=== PATIENT | male | born 1965 | race Caucasian/White ===

== ENCOUNTER → 2018-07-28 07:11 | Outpatient (CLI) | payer BC, SELFPAY ==
[2018-06-03 15:11] VITALS: BMI 25.5
[2018-07-28 08:07] LABS: Anion Gap 8 (5-15); BUN 24 mg/dL (7-18); BUN/Creat Ratio 23.3 RATIO (10-20); Calcium,Total 8.8 mg/dL (8.5-10.1); Chloride 110 mmol/L (98-107); Cholesterol 205 mg/dL (200); Creatinine, Serum 1.03 mg/dL (0.70-1.30); EST Glomerular Filtration Rate 80 mL/min (>60); Est Glom Filt Rate - Afr Amer 97 mL/min (>60); Glucose 94 mg/dL (74-106); High Density Lipoprotein 41 mg/dL; Potassium 4.3 mmol/L (3.5-5.1); Sodium Level 144 mmol/L (136-145); Triglycerides 171 mg/dL; Very Low Density Lipoprotein 34 mg/dL (5-40)
== END ==
PROVIDERS: Family Provider Family Medicine; PCP Family Medicine; Referring Provider Family Medicine; Visit Provider Family Medicine
DX: I10 Essential (primary) hypertension (principal)
CPT/HCPCS: 36415; 80048; 80061

== ENCOUNTER → 2019-06-04 16:10 | Outpatient (CLI) | payer BC, SELFPAY ==
[2019-06-04 16:08] VITALS: BMI 25.5
[2019-06-04 17:17] LABS: Absolute Lymphocyte Count 2.22 X10^3/uL (0.83-4.51); Absolute Neutrophil Count 2.8 X10^3/uL (2.0-7.7); Basophil# 0.04 X10^3/uL; Basophil% 0.7 % (0-1); Eosinophil# 0.13 X10^3/uL; Eosinophils% 2.3 % (0-5); Hematocrit 46.6 % (40-54); Hemoglobin 15.5 g/dL (13.0-16.5); Lymphocyte # 2.22 X10^3/ul (4.0); Lymphocyte % 39.2 % (19-41); Mean Corp Hgb Conc 33.3 g/dL (32-36); Mean Corpuscular Volume 90.1 fL (80-94); Mean Platelet Vol. 9.9 fl (6.2-12.0); Monocyte% 8.8 % (0-10); NRBC Flagged by Analyzer 0 % (0-5); Neutrophil # 2.77 X10^3/uL (2.7-7.7); Neutrophil % 48.8 % (47-70); Platelet Count 225 K/mm3 (150-450); RBC Distribution Width CV 11.9 % (11.6-14.6); RBC Distribution Width SD 39.6 fl (35.1-43.9); Red Blood Count 5.17 M/mm3 (4.6-6.2); White Blood Count 5.7 K/mm3 (4.4-11.0)
[2019-06-04 17:52] LABS: AST(SGOT) 16 U/L (15-37); Alanine Aminotransfer ALT/SGPT 27 U/L (16-61); Albumin, Serum 4.1 g/dL (3.2-5.0); Alkaline Phosphatase 84 U/L (45-117); Anion Gap 11 (5-15); BUN 20 mg/dL (7-18); BUN/Creat Ratio 19.8 RATIO (10-20); Bilirubin, Direct 0.14 mg/dL (0.00-0.30); Calcium,Total 8.8 mg/dL (8.5-10.1); Chloride 104 mmol/L (98-107); Cholesterol 220 mg/dL (200); Creatinine, Serum 1.01 mg/dL (0.70-1.30); EST Glomerular Filtration Rate 81 mL/min (>60); Est Glom Filt Rate - Afr Amer 98 mL/min (>60); Globulin 3.6 g/dL (2.2-4.2); Glucose 83 mg/dL (74-106); High Density Lipoprotein 45 mg/dL; Protein, Total 7.7 g/dL (6.4-8.2); Sodium Level 142 mmol/L (136-145); Thyroid Stim Hormone (TSH) 1.18 uIU/mL (0.358-3.74); Triglycerides 188 mg/dL; Very Low Density Lipoprotein 38 mg/dL (5-40)
== END ==
PROVIDERS: Family Provider Family Medicine; PCP Family Medicine; Referring Provider Internal Medicine Cardiovascular Disease; Visit Provider Internal Medicine Cardiovascular Disease
DX: I10 Essential (primary) hypertension (principal)
CPT/HCPCS: 36415; 80048; 80061; 80076; 84443; 85025

== ENCOUNTER → 2020-05-20 07:13 | Outpatient (CLI) | payer BC, SELFPAY ==
[2019-06-04 16:08] VITALS: BMI 25.5
[2020-05-20 07:59] LABS: Anion Gap 5 (5-15); BUN 22 mg/dL (7-18); BUN/Creat Ratio 20.6 RATIO (10-20); Calcium,Total 9.3 mg/dL (8.5-10.1); Chloride 106 mmol/L (98-107); Cholesterol 215 mg/dL (200); Creatinine, Serum 1.07 mg/dL (0.70-1.30); EST Glomerular Filtration Rate 76 mL/min (>60); Est Glom Filt Rate - Afr Amer 92 mL/min (>60); Glucose 98 mg/dL (74-106); High Density Lipoprotein 49 mg/dL; PSA,Total - Annual Screen 0.78 ng/mL (0.00-4.00); Potassium 4.3 mmol/L (3.5-5.1); Sodium Level 140 mmol/L (136-145); Triglycerides 143 mg/dL; Very Low Density Lipoprotein 29 mg/dL (5-40)
== END ==
PROVIDERS: PCP Family Medicine; Referring Provider Family Medicine; Visit Provider Family Medicine
DX: I10 Essential (primary) hypertension (principal); N40.0 Benign prostatic hyperplasia without lower urinary tract symptoms
CPT/HCPCS: 36415; 80048; 80061; 84153; G0103

== ENCOUNTER → 2022-06-19 | Outpatient (CLI) | payer OTHER, SELFPAY ==
[2022-06-19 17:26] LABS: Absolute Lymphocyte Count 2.33 X10^3/uL (0.83-4.51); Absolute Neutrophil Count 2.8 X10^3/uL (2.0-7.7); Basophil# 0.05 X10^3/uL; Basophil% 0.9 % (0-1); Eosinophil# 0.07 X10^3/uL; Eosinophils% 1.2 % (0-5); Hematocrit 45.8 % (40-54); Hemoglobin 16.1 g/dL (13.0-16.5); Lymphocyte # 2.33 X10^3/ul (0.83-4.51); Lymphocyte % 40.7 % (19-41); Mean Corp Hgb Conc 35.2 g/dL (32-36); Mean Corpuscular Volume 88.2 fL (80-94); Mean Platelet Vol. 9.5 fl (6.2-12.0); Monocyte# 0.51 X10^3/uL; Monocyte% 8.9 % (0-10); NRBC Flagged by Analyzer 0 % (0-5); Neutrophil # 2.76 X10^3/uL (2.7-7.7); Neutrophil % 48.1 % (47-70); Platelet Count 223 K/mm3 (150-450); RBC Distribution Width CV 12.1 % (11.6-14.6); RBC Distribution Width SD 39.4 fl (35.1-43.9); Red Blood Count 5.19 M/mm3 (4.6-6.2); White Blood Count 5.7 K/mm3 (4.4-11.0)
[2022-06-19 18:20] LABS: AST(SGOT) 14 U/L (15-37); Alanine Aminotransfer ALT/SGPT 25 U/L (16-61); Albumin, Serum 4.2 g/dL (3.2-5.0); Alkaline Phosphatase 70 U/L (45-117); Anion Gap 7 (5-15); BUN 18 mg/dL (7-18); BUN/Creat Ratio 19.2 RATIO (10-20); Calcium,Total 8.8 mg/dL (8.5-10.1); Chloride 104 mmol/L (98-107); Cholesterol 238 mg/dL (200); Creatinine, Serum 0.94 mg/dL (0.70-1.30); EST Glomerular Filtration Rate 88 mL/min (>60); Est Glom Filt Rate - Afr Amer 106 mL/min (>60); Globulin 3.3 g/dL (2.2-4.2); Glucose 96 mg/dL (74-106); High Density Lipoprotein 54 mg/dL; Magnesium 2.4 mg/dL (1.6-2.6); Potassium 3.8 mmol/L (3.5-5.1); Protein, Total 7.5 g/dL (6.4-8.2); Sodium Level 139 mmol/L (136-145); Thyroid Stim Hormone (TSH) 1.21 uIU/mL (0.358-3.74); Triglycerides 110 mg/dL; Very Low Density Lipoprotein 22 mg/dL (5-40)
== END | disposition home or self-care (01) ==
LOC: LAB 16:49
PROVIDERS: PCP Family Medicine; Visit Provider Internal Medicine Cardiovascular Disease
DX: I10 Essential (primary) hypertension (principal); I47.1 Supraventricular tachycardia; Z12.5 Encounter for screening for malignant neoplasm of prostate
CPT/HCPCS: 36415; 80048; 80061; 80076; 83735; 84153; 84443; 85025; G0103

== ENCOUNTER → 2022-07-18 | Outpatient (CLI) | payer SELFPAY ==
--- NOTE | 2022-07-18 14:53 | ECHOD_ITS ---
Reason For Study: ARRYTHMNIA Procedure This was a 2D Doppler, Color Flow transthoracic echocardiogram. Exam performed in department. Left Ventricle Normal LV size. Left ventricular systolic function is normal. The estimated ejection fraction is 60 %. Stage 1 diastolic dysfunction. No regional wall motion abnormalities noted. Right Ventricle Normal RV size. Normal systolic function. Atria Normal left atrium. Normal right atrium. Mitral Valve Normal mitral valve. Mild (1+) eccentric mitral valve insufficiency. Tricuspid Valve Normal tricuspid valve. Aortic Valve Normal aortic valve. Trisinus/trileaflet aortic valve. Pulmonic Valve Normal pulmonic valve. Great Vessels Normal aortic root. The pulmonary artery is normal size. Normal inferior vena cava. Pericardium/Pleural No pericardial effusion. MMode/2D Measurements & Calculations RVDd: 3.5 cm Ao root diam: 3.1 cm LAV(MOD-sp2): 18.9 ml RA A4 area: 18.4 cm2 Time Measurements MV dec time: 0.21 sec Doppler Measurements & Calculations MV E max jordan: 90.8 cm/sec Lat Peak E' Jordan: 13.0 cm/sec Med Peak E' Jordan: 7.6 cm/sec MV A max jordan: 98.0 cm/sec E/E' lat: 7.0 E/E' med: 11.9 MV E/A: 0.93 MV V2 max: 105.3 cm/sec MV dec slope: 456.4 cm/sec2 Ao V2 max: 156.5 cm/sec MV max P.4 mmHg Ao max P.8 mmHg MV V2 mean: 57.2 cm/sec Ao V2 mean: 103.8 cm/sec MV mean P.5 mmHg Ao mean P.0 mmHg MV V2 VTI: 41.6 cm Ao V2 VTI: 34.0 cm AV (velocity ratio): 0.75 LV V1 max: 118.2 cm/sec PA V2 max: 96.1 cm/sec LV V1 max P.6 mmHg PA V2 mean: 66.9 cm/sec LV V1 mean P.0 mmHg LV V1 mean: 81.6 cm/sec LV V1 VTI: 25.3 cm ECHO/Echo Complete Interpretation Summary Normal LV size. Left ventricular systolic function is normal. The estimated ejection fraction is 60 %. Stage 1 diastolic dysfunction. Mild (1+) eccentric mitral valve insufficiency. Structurally normal valves. Ordering Physician: Coy Lima Referring Physician: Coy Lima Performed By: Cheli Garcia RCS
== END | disposition home or self-care (01) ==
PROVIDERS: PCP Family Medicine; Referring Provider Internal Medicine Cardiovascular Disease; Visit Provider Internal Medicine Cardiovascular Disease
DX: I47.1 Supraventricular tachycardia (principal); I10 Essential (primary) hypertension
CPT/HCPCS: 93306

== ENCOUNTER 2023-06-19 15:13 | Emergency (ER) | payer OTHER, SELFPAY ==
[2023-06-19 15:13] VITALS: BP 148/80; PULSE 69; RESP 15; O2SAT 97
[2023-06-19 15:15] VITALS: BP 145/100; PULSE 73; RESP 14; TEMP 36.3; O2SAT 100; BMI 27.2
--- NOTE | 2023-06-19 15:35 | EDS_ITS ---
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 He states he felt as if he was drunk. He also complained of both arms not feeling right when he was dizzy . He denied headache. He denied double vision, blurred vision or loss of vision. He denies ringing in his ears or decreased hearing. He denies trouble with speech or swallowing. He presently has no complaint of paresthesia, anesthesia or motor weakness. He denies cardiac or respiratory symptoms. Only GI symptom is nausea. There is no recent or remote history of head trauma. Prior similar symptoms: No Recent Illness/Hospitalization: No PFSH PFSH Medical History AVNRT (AV amaury re-entry tachycardia) Essential (primary) hypertension Home Medications losartan 25 mg tablet 25 mg PO QDAY #90 tabs 11/30/22 [Rx Last Taken Unknown] Allergy/AdvReac Type Severity Reaction Status Date / Time lisinopril AdvReac Severe Cough Verified 06/19/23 15:16 Family History Father CAD (coronary artery disease) Hypertension Cancer Mother CAD (coronary artery disease) Hypertension Surgical History History of cardiac radiofrequency ablation (08/23/15) History of left heart catheterization (08/07/13) Social History (Updated 06/19/23 @ 15:[address] Ricky Neumann MD) household members: spouse Smoking Status: Never smoker alcohol intake: former ROS ROS ED Constitutional Constitutional ED: Denies chills, fever(s) or subjective Eyes Eyes: Denies blurry vision, change in vision or diplopia ENT ENT ED: Denies ear pain, rhinorrhea or sore throat Cardiovascular Cardiovascular: Denies chest pain or palpitations Respiratory/Chest Respiratory/Chest: Denies cough, dyspnea or dyspnea on exertion Gastrointestinal Gastrointestinal: Reports nausea; Denies diarrhea, melena or vomiting Musculoskeletal Musculoskeletal: Denies arthralgias, back pain, myalgias or neck pain Neurologic Neurologic: Reports other Details: Balance is off ; Denies headache(s), paresthesias or weakness Endocrine Endocrinology: Denies cold intolerance or heat intolerance Hematologic/Lymphatic Hematologic/Lymphatic: Reports systems reviewed and no addt'l complaints, except as documented EXAM Physical Exam Const Vital Signs: 06/19/23 15:15 06/19/23 15:13 06/19/23 15:36 Temperature 97.3 F L Temperature Source Temporal Pulse Rate 73 69 Respiratory Rate 14 15 Respiratory Effort Normal Respiratory Pattern Normal Blood Pressure 145/100 H 148/80 H Blood Pressure Mean 115 102 Pulse Ox 100 97 Oxygen Delivery Method Room Air Room Air 06/19/23 16:13 06/19/23 16:58 06/19/23 17:00 Temperature Temperature Source Pulse Rate 62 59 L 59 L Respiratory Rate 12 16 16 Respiratory Effort Respiratory Pattern Blood Pressure 135/88 H 108/81 H 113/60 Blood Pressure Mean 103 90 77 Pulse Ox 99 99 99 Oxygen Delivery Method Room Air Room Air Room Air 06/19/23 18:00 Temperature Temperature Source Pulse Rate 78 Respiratory Rate 12 Respiratory Effort Respiratory Pattern Blood Pressure 110/56 L Blood Pressure Mean 74 Pulse Ox 99 Oxygen Delivery Method Room Air Positive well nourished and well developed General Appearance ED: well developed and NAD; Negative for pallor HEENT Reports moist mucous membranes HEENT Narrative: Head is atraumatic and normocephalic. Ears are normal. External auditory canal is normal. TMs are normal. Nares are patent. Uvula is midline. There is no deviation of the tongue with protrusion. Eyes PERRL and EOMs intact bilaterally Eyes Narrative: There is no nystagmus. General Eye ED: Negative for pale conjunctiva or scleral icterus Neck no lymphadenopathy, supple and no JVD Chest Wall inspection of chest normal and palpation of chest normal Resp normal respiratory effort and clear to auscultation bilaterally Cardio regular rate, regular rhythm, S1 normal heart sound, S2 normal heart sound and no murmurs GI normal to inspection, nondistended, normoactive bowel sounds, non-tender, non- distended and no masses; Negative for hepatosplenomegaly Palpation: soft Extremity normal to inspection General Extremety ED: Negative for edema General Extremity: Negative for edema Neuro oriented x3, CN's II-XII intact bilaterally and no sensory deficits noted Neuro Narrative: Is no dysmetria. Romberg with eyes open and close negative. The eye askew test and the hints test were both negative. Megha-Hallpike maneuver was positive with his head turned to the right and rising from supine to upright position. Symptoms were transient. He does report nausea. 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 It was observed and normal. DTR 3+ bicep, tricep, patella and ankle. There is no clonus at the ankles. There is no Babinski sign right or left. Sensorium / Orientation: alert Motor Exam: strength 5/5 throughout Psych mental status grossly normal Skin no rashes or lesions noted, no wounds and skin turgor normal General Skin Exam: Negative for jaundice or pallor MDM MDM MDM Narrative Medical decision making narrative: Patient was central versus peripheral vertigo. In light of a normal neurologic exam with a positive [place]-Hallpike maneuver we will treat for benign positional vertigo. Since patient is nauseous and maneuver caused him to be more nauseous will have nurse administer Zofran ODT. After he receives the Zofran ODT will perform Milind maneuver. Treatment and Re-Evaluation :: Milind was performed. Patient had no symptoms when his head was to the right or left. He did have slight symptoms when he was raised from a supine to upright position. Will reassess in 5 minutes. Discharge Plan Triage Chief Complaint: Dizziness ED Provider: Ricky Neumann Dx/Rx/DC Orders Clinical Impression: Essential (primary) hypertension, Benign paroxysmal positional vertigo of right ear Instructions: ED BPV Vertigo Prescriptions: No Action losartan 25 mg tablet 25 mg PO QDAY Qty: 90 3RF Primary Care Provider: Williams Olson Referrals: Williams Olson MD [Primary Care Provider] - As Needed Disposition Disposition: Home, Self Care
[2023-06-19] MEDS: Ondansetron ODT 4 MG Tablet PO (15:46)
[2023-06-19 16:13] VITALS: BP 135/88; PULSE 62; RESP 12; O2SAT 99
[2023-06-19 16:58] VITALS: BP 108/81; PULSE 59; RESP 16; O2SAT 99
[2023-06-19 17:00] VITALS: BP 113/60; PULSE 59; RESP 16; O2SAT 99
[2023-06-19 18:00] VITALS: BP 110/56; PULSE 78; RESP 12; O2SAT 99
== END 2023-06-19 19:15 | disposition home or self-care (01) ==
PROVIDERS: Emergency Provider Emergency Medicine; PCP Family Medicine; Visit Provider Emergency Medicine
DX: H81.11 Benign paroxysmal vertigo, right ear (principal); I10 Essential (primary) hypertension
CPT/HCPCS: 99282

== ENCOUNTER → 2024-07-08 | Outpatient (CLI) | payer OTHER, SELFPAY ==
[2024-07-08 09:00] LABS: ALB/GLOB Ratio 1.2 RATIO (0.9-2.4); AST(SGOT) 11 U/L (15-37); Alanine Aminotransfer ALT/SGPT 21 U/L (16-61); Albumin, Serum 3.8 g/dL (3.2-5.0); Alkaline Phosphatase 70 U/L (45-117); Anion Gap 5 (5-15); BUN 22 mg/dL (7-18); BUN/Creat Ratio 19.8 RATIO (10-20); Calcium,Total 9.2 mg/dL (8.5-10.1); Chloride 108 mmol/L (98-107); Cholesterol 201 mg/dL (200); Creatinine, Serum 1.11 mg/dL (0.70-1.30); EST Glomerular Filtration Rate 72 mL/min (>60); Est Glom Filt Rate - Afr Amer 87 mL/min (>60); Globulin 3.1 g/dL (2.2-4.2); Glucose 97 mg/dL (74-106); High Density Lipoprotein 46 mg/dL; PSA,Total - Annual Screen 0.77 ng/mL (0.00-4.00); Protein, Total 6.9 g/dL (6.4-8.2); Sodium Level 140 mmol/L (136-145); Triglycerides 168 mg/dL; Very Low Density Lipoprotein 34 mg/dL (5-40)
== END | disposition home or self-care (01) ==
PROVIDERS: PCP Family Medicine; Referring Provider Family Medicine; Visit Provider Family Medicine
DX: I10 Essential (primary) hypertension (principal); Z12.5 Encounter for screening for malignant neoplasm of prostate
CPT/HCPCS: 36415; 80053; 80061; 84153; G0103